=== PATIENT | male | born 1940 | race Caucasian/White ===

== ENCOUNTER → 2017-03-13 | Outpatient (CLI) | payer MEDICARE, OTHER ==
[2015-02-08 13:10] VITALS: BP 99/44
[~2017-03-13] MED LIST: ASPI81TA2 PO; ATOR20TA58 PO; CALC600T4 PO; CLOP75TA PO; FENO200C PO; FURO20TA3 PO; GLIM4TAB2 PO; LISI-338 PO; MAGN500C PO; METO25TA4 PO; METO25TA9 PO; MULT-245 PO; NIAC10002 PO; OMEG1CAP16 PO; REGADENOSON 0.4 MG/5 ML DISP.SYRIN. IV ONE; TAMS0.4C2 PO
--- NOTE | 2017-03-13 13:45 | RAD ---
APPROVED REPORT Test Type: Pharmacological Stress Nurse/Tech: Brian Best RN Test Indications: chest tightness Cardiac History: see ehr Medications: see ehr Medical History: see ehr Resting ECG: SB Resting Heart Rate: 49 bpm Resting Blood Pressure: 113/57mmHg Pretest Chest Pain: None Nurse/Tech Notes Lungs CTA, S1, S2 Consent: The procedure was explained to the patient in lay terms. Informed consent was witnessed. Albin eout was entered into [employer]. History and Stress Test performed by Jose C JorgensenNKd Pharm. Details Pharmacologic stress testing was performed using 0.4mg per 5ml of regadenoson given intravenously ove r 7-10 seconds. Stress Symptoms No chest pain or symptoms. POST EXERCISE Reason for Termination: Infusion complete Max HR: 71 bpm Max Blood Pressure: 107/50mmHg Blood Pressure response to exercise: Normal blood pressure response during stress. Chest Pain: No. Arrhythmia: No. ST Change: No. INTERPRETATION Stress EKG Conclusion: The resting EKG showed a sinus rhythm with a left anterior fascicular block. The stress EKGs showed no significant change from baseline. No EKG evidence of stress-induced ischemia. Imaging Protocol IMAGE PROTOCOL: Rest Tc-99m/stress Tc-99m 1 day Rest: Stress: Viability: Radiopharm.Tc99m JsuzuftpfQz21n Sestamibi Wpbw63mDf 32mCi Duration 15min. 10min. Img Date 03/13/2017 03/13/2017 Inj-Img Hwqx19jup. 60min. Rest Admin Site:IV - Right AntecubitalAdministrator:RT Jose Miguel (R)(N) Stress Admin Site: IV - Right AntecubitalAdministrator: CARLOS Sung STRESS DATA End Diast. Vol.81.0mlAv. Heart Rate60.0bpm End Syst. Vol.26.0mlCO Index BSA0.0L/min Myocardial Oags773.0gEject. Brwrqqel74.0% Stress Rates Pk. Fill Rate2.35EDV/secLVtime Pk. Fill 255.82msec Pk. Empty Rate3.58ESV/secLVtime Pk. Pbwkt006.73msec 1/3 Pk. Fill0.92EDV/sec Stress Scores Regional WT0.00Summed WT0.00 Regional WM0.00Summed WM0.00 LV Perfusion The stress scans showed no significant defects. The rest scans showed no significant defects. Nuclear imaging shows no reversible ischemia or infarct. Wall Motion Normal left ventricular systolic function with an ejection fraction of 68%. LV Perf. Quant 17 Seg. SSS5.00 17 Seg. SRS2.00 17 Seg. SDS3.00 Stress Defect Extent (% LAD)0.00Rest Defect Extent (% LAD)0.00Rev. Defect Extent (% LAD)0.00 Stress Defect Extent (% LCX) 50.00Rest Defect Extent (% LCX)16.30Rev. Defect Extent (% LCX)10.00 Stress Defect Extent (% RCA)0.00Rest Defect Extent (% RCA)0.00Rev. Defect Extent (% RCA)0.00 Stress Defect Extent (% JAILENE)9.10Rest Defect Extent (% JAILENE)2.80Rev. Defect Extent (% JAILENE)1.70 Conclusion 1. No EKG evidence of stress-induced ischemia. 2. Nuclear imaging shows no reversible ischemia or infarct. 3. Normal left ventricular systolic function with an ejection fraction of 68%. 4. Low risk Lexiscan nuclear stress test.
== END | disposition home or self-care (01) ==
LOC: NM 08:50
PROVIDERS: ATTEND Internal Medicine Cardiovascular Disease
DX: R07.89 Other chest pain (principal)
CPT/HCPCS: 78452; 93017; 96374; 96375; 96376; A9500; J2785

== ENCOUNTER 2018-03-07 09:00 | Emergency (ER) | payer MEDICARE | END 2018-03-07 12:20 | disposition home or self-care (01) | LOC: ER 09:00 | DX: K59.00 Constipation, unspecified (principal); K64.9 Unspecified hemorrhoids; E11.9 Type 2 diabetes mellitus without complications; E78.00 Pure hypercholesterolemia, unspecified; I10 Essential (primary) hypertension; Z87.442 Personal history of urinary calculi; Z88.5 Allergy status to narcotic agent; Z87.891 Personal history of nicotine dependence | CPT/HCPCS: 74018; 99283 ==

== ENCOUNTER → 2018-07-14 | Outpatient (CLI) | payer MEDICARE ==
[2018-03-07 12:00] VITALS: BP 121/77
[~2018-07-14] MED LIST changes: +ASPI-630 PO; -ASPI81TA2 PO; -MAGN500C PO; +MAGN500C10 PO; +METO-239 PO; -METO25TA9 PO; -OMEG1CAP16 PO; +OMEG1CAP27 PO; -REGADENOSON 0.4 MG/5 ML DISP.SYRIN. IV ONE
--- NOTE | 2018-07-14 12:46 | KCIC ---
CT ABDOMEN PELVIS WO CONTRAST Indication: History of renal cell cancer. Elevated LFTs. Left nephrectomy. Cholecystectomy. Exposure: One or more of the following individualized dose reduction techniques were utilized for this examination: 1. Automated exposure control 2. Adjustment of the mA and/or kV according to patient size 3. Use of iterative reconstruction technique. Comparison: None are available. Contrast: No intravenous contrast given. No oral contrast per request. Evaluation of solid viscera, bowel and vasculature is compromised by the noncontrast technique. Lower thorax: Coronary artery calcifications. Emphysematous changes in the lung bases. Liver: Unremarkable Spleen: Unremarkable Pancreas: Unremarkable Adrenals: No evidence of mass. Kidneys: Left kidney absent. Right kidney measures 10.5 cm longitudinal. Nonobstructive 5 mm calculus lower pole of the right kidney. No hydronephrosis. No ureteric calculus. Gallbladder: Surgically absent Aorta: Calcified and tortuous. No evidence of aneurysm. Lymph nodes: No significant enlargement GI tract: Mild diverticulosis. No evidence of acute colitis. No evidence of bowel obstruction. Appendix is not clearly visualized. Reproductive organs: Prostate gland is enlarged, about 5.5 cm diameter. Urinary bladder: Mildly distended with borderline wall thickening, may be due to chronic outlet obstruction. The inferior bladder is indented statement. Peritoneum: Minimal stranding within the mesenteric fat. Numerous tiny punctate foci of calcification within the peritoneum, most predominantly along the posterior right liver. Abdominal wall: Unremarkable Spine: Severe degenerative spondylosis with stenosis. Bones: Degenerative changes at both hips. IMPRESSION: 1. Nonobstructive calculus at the lower pole the right kidney. 2. Status post left nephrectomy. 3. Prostatomegaly. 4. Mild urinary bladder wall thickening, could indicate chronic outlet obstruction. 5. Minimal stranding within the mesenteric fat suggesting mild nonspecific inflammation or edema. 6. Numerous punctate foci of calcification within the peritoneum, particularly on the right. Likely result of old chronic process. 7.Severe thoracolumbar spondylosis and stenosis. Electronically signed by: Tate Santos MD (07/14/2018 12:42 PM) [facility]
== END | disposition home or self-care (01) ==
LOC: KCIC CT 10:15
PROVIDERS: ATTEND Family Medicine
DX: N20.0 Calculus of kidney (principal); M47.895 Other spondylosis, thoracolumbar region; M48.05 Spinal stenosis, thoracolumbar region; K57.90 Diverticulosis of intestine, part unspecified, without perforation or abscess without bleeding; I25.10 Atherosclerotic heart disease of native coronary artery without angina pectoris; I12.9 Hypertensive chronic kidney disease with stage 1 through stage 4 chronic kidney disease, or unspecified chronic kidney disease; E11.22 Type 2 diabetes mellitus with diabetic chronic kidney disease; N18.3 Chronic kidney disease, stage 3 (moderate); I25.2 Old myocardial infarction; Z98.890 Other specified postprocedural states; Z85.53 Personal history of malignant neoplasm of renal pelvis; Z82.49 Family history of ischemic heart disease and other diseases of the circulatory system
CPT/HCPCS: 74176

== ENCOUNTER → 2019-04-24 | Outpatient (CLI) | payer MEDICARE ==
[2018-03-07 12:00] VITALS: BP 121/77
--- NOTE | 2019-04-24 14:19 | KCIC ---
KNEE RIGHT 3V 04/24/2019 12:00 AM INDICATION: Right knee pain. Medial knee pain with intermittent swelling. COMPARISON: None available. TECHNIQUE: 4 views of the right knee are provided. FINDINGS: There is no acute fracture or dislocation. Bone mineralization is within normal limits. There is focal 2 mm depression involving the left medial tibial plateau involving a 7 mm segment which may represent an osteochondral defect. There is mild medial femorotibial joint space narrowing with subcortical sclerosis. There is mild patellofemoral joint space narrowing. There is a small knee joint effusion. Patellar enthesopathy is identified. IMPRESSION: No acute fracture or dislocation. There is an 7 x 2 mm osteochondral defect involving the medial tibial plateau which may be chronic. Small knee joint effusion. Mild medial femorotibial osteoarthrosis. Electronically signed by: Denise Dong MD (04/24/2019 2:16 PM) [facility]
== END | disposition home or self-care (01) ==
LOC: KCIC 12:22
PROVIDERS: ATTEND Family Medicine
DX: M17.11 Unilateral primary osteoarthritis, right knee (principal); M25.461 Effusion, right knee; M21.861 Other specified acquired deformities of right lower leg
CPT/HCPCS: 73562

== ENCOUNTER 2019-06-29 12:34 | Emergency (ER) | payer MEDICARE ==
[~2019-06-29] VITALS: Ht 172.7 cm; Wt 80.7 kg
--- NOTE | 2019-06-29 13:19 | PHYS DOC ---
Past Medical History Past Medical History: Diabetes-Type II, High Cholesterol, Hypertension, Kidney Stone Past Surgical History: Cholecystectomy, Other Additional Past Surgical Histo: left kidney removed, Side of R)great toe nail removed r\t ingrown. Alcohol Use: Rarely Drug Use: None Adult General Chief Complaint Chief Complaint: MECHANICAL FALL HPI HPI Patient is a 79 year old 79-year-old male patient with history of diabetes type 2, hypertension, high cholesterol, who presents to the ED to be evaluated after falling 3 days ago. 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 Denies any loss of consciousness. He states he had minimal pain when he fell but has noted increased pain over weekend currently rated as mild pain to the right shoulder, nose, and left knee. He states most of the pain is worse on the left knee on ambulation as well as right shoulder on range of motion. He states is on a blood thinner to prevent blood clots. He does not remember the name of the blood thinner. He reports he hit his nose on the ground when he fell. Review of Systems Review of Systems Constitutional: Denies fever or chills [] Eyes: Denies change in visual acuity, redness, or eye pain [] HENT: Reports nose pain and abrasion. Denies nasal congestion or sore throat [] Respiratory: Denies cough or shortness of breath [] Cardiovascular: No additional information not addressed in HPI [] GI: Denies abdominal pain, nausea, vomiting, bloody stools or diarrhea [] : Denies dysuria or hematuria [] Musculoskeletal: Reports left knee pain, right shoulder pain Integument: Denies rash or skin lesions [] Neurologic: Denies headache, focal weakness or sensory changes [] All other systems were reviewed and found to be within normal limits, except as documented in this note. Allergies Allergies Allergies Coded Allergies Type Severity Reaction Last Updated Verified oxycodone Allergy Severe AnaphylaXIS 02/08/15 Yes Physical Exam Physical Exam Constitutional: Well developed, well nourished, no acute distress, non-toxic appearance. [] HENT: Bruising noted on the anterior aspect of the nose. No deformity. Eyes: PERRLA, EOMI, conjunctiva normal, no discharge. [] Neck: Normal range of motion, no tenderness, supple, no stridor. [] Cardiovascular:Heart rate regular rhythm, no murmur [] Lungs & Thorax: Bilateral breath sounds clear to auscultation [] Abdomen: Bowel sounds normal, soft, no tenderness, no masses, no pulsatile masses. [] Skin: Warm, dry, no erythema, no rash. [] Back: No tenderness, no CVA tenderness. [] Extremities: Right shoulder with no obvious deformity, full range of motion to the right shoulder and right upper extremity. Adequate radial medial and ulnar sensation to the right upper extremity. +2 right radial pulse. Cap refill less than 2 seconds the right fingers. Left knee with no obvious deformity. Soft tissue swelling noted on the anterior aspect of the left knee including bruising here and tenderness on palpation of the left anterior knee. Slightly Limited range of motion to the left knee due to pain. +2 bilateral pedal pulses. Neurologic: Alert and oriented X 3, normal motor function, normal sensory function, no focal deficits noted. [] Psychologic: Affect normal, judgement normal, mood normal. [] Current Patient Data Vital Signs Vital Signs Date Time Temp Pulse Resp B/P (MAP) Pulse Ox O2 Delivery O2 Flow Rate FiO2 06/29/19 12:59 97.7 60 14 153/67 (95) 98 Room Air 97.7 EKG EKG [] Radiology/Procedures Radiology/Procedures []PROCEDURE: CT HEAD AND CERVICAL SPINE WO CT MAXILLOFACIAL WO CONTRAST, CT HEAD AND CERVICAL SPINE WO Clinical indications: Fall last Saturday. Head and facial injury. On blood thinners. NONCONTRAST HEAD CT COMPARISON: None available. Technique: Noncontrast axial cross sectional scanning of the head was performed. PQRS compliance Statement One or more of the following individualized dose reduction techniques were utilized for this study: 1. Automated exposure control 2. Adjustment of the mA and/or kV according to patient size 3. Use of iterative reconstruction technique Findings: No acute intracranial hemorrhage or midline shift or mass-effect or hydrocephalus or extra-axial fluid collection is seen. No focal hypodense area or sulci effacement is seen to indicate an acute infarct or edema radiographically. No skull fracture or pneumocephalus is seen. No opacification of the mastoid sinuses or the middle ear cavities or the paranasal sinuses is seen. Impression: No acute intracranial abnormality is seen. CT STUDY OF THE MAXILLOFACIAL BONES WITHOUT CONTRAST TECHNIQUE: Noncontrast helical CT scanning of the maxillofacial bones was performed. Multiplanar 2-D reconstructions were generated. FINDINGS: The mandible is intact and the temporomandibular joints are normally aligned. The patient is edentulous. The maxilla and nasal spine and pterygoid plates are intact. Nasal bones are intact. There is nasal septal deviation with the convexity pointed towards the right side. The orbit and orbital floor and zygoma and zygomatic arch is intact on both sides. IMPRESSION: No acute fracture. CT STUDY OF THE CERVICAL SPINE WITHOUT CONTRAST TECHNIQUE: Noncontrast helical CT scanning of the cervical spine was performed. Multiplanar 2-D reconstructions were generated. FINDINGS: No acute fracture or discitis or lytic process is evident. No anterolisthesis is evident. Degenerative facet arthropathy is evident. No perching of facet joints is seen. There is degenerative disc space narrowing and endplate spurring at C3-4 and C4-5 and C5-6 and C6-7 and C7-T1. IMPRESSION: No acute fracture. Degenerative cervical spondylosis. Electronically signed by: Consuelo Stahl MD (06/29/2019 2:29 PM) [facility]ALKoemeiN[facility] DICTATED and SIGNED BY: CONSUELO STAHL MD DATE: 06/29/19 [id number] PROCEDURE: SHOULDER 2+V RIGHT Indications: Fall and pain. Three-view right shoulder study: No acute fracture or dislocation or lytic process is seen. Mild primary degenerative osteoarthritis of the AC joint and glenohumeral joint is seen. Chronic erosion of the lateral head is seen secondary to chronic acromial humeral space impingement which may result in rotator cuff disease. IMPRESSION: No acute fracture. 4 view left knee study: No acute fracture or dislocation or lytic process is seen. Mild left knee joint effusion. There is prepatellar soft tissue swelling which may be due to bursitis. Prominent exostosis of the anterior tibial tubercle is seen at the attachment of the patellar tendon. The patella is normally aligned. There is minimal degenerative spurring of the patellofemoral joint compartment. IMPRESSION: Prepatellar bursitis. No acute fracture. Electronically signed by: Consuelo Stahl MD (06/29/2019 1:56 PM) [place] [id number] DICTATED and SIGNED BY: CONSUELO STAHL MD DATE: 06/29/19 6233 Course & Med Decision Making Course & Med Decision Making Pertinent Labs and Imaging studies reviewed. (See chart for details) This is a 79-year-old male patient who presents to the emergency room with complaints of right shoulder, left knee and nose pain after falling over the weekend. Pain has increased over time. CT of the head, maxillary facial and cervical spine are negative for any acute findings. Left knee x-ray was noted for bursitis otherwise no acute findings. Right shoulder x-rays were negative f or any acute findings. Scooby bandage applied to the left knee by the ED RN, neurovascular exam is intact. Ice elevation encouraged. Tylenol for pain. Follow-up with PCP in 1-2 weeks. Tetanus up-to-date. Dragon Disclaimer Dragon Disclaimer This electronic medical record was generated, in whole or in part, using a voice recognition dictation system. Departure Departure Impression: Primary Impression: Prepatellar bursitis, left knee Additional Impressions: Contusion of right shoulder Facial contusion Fall from standing Disposition: 01 HOME, SELF-CARE Condition: STABLE Referrals: GREG BLANCO MD (PCP) follow up in one week Patient Instructions: Contusion, [id number] Additional Instructions: You were devaluated in the emergency room after falling, your CAT scan of the he ad and face, cervical spine are negative for any acute findings. Your right shoulder x-rays are negative for any acute findings. Left knee x-rays were noted for bursitis. Try to keep the left knee wrapped in an Scooby bandage, try to elevate the affected extremities. Take Tylenol as needed for pain. Follow-up with your own doctor in the next 1 week. Problem Qualifiers Additional Impressions: Contusion of right shoulder Encounter type: initial encounter Qualified Codes: S40.011A - Contusion of right shoulder, initial encounter Facial contusion Encounter type: initial encounter Qualified Codes: S00.83XA - Contusion of other part of head, initial encounter Fall from standing Encounter type: initial encounter Qualified Codes: W19.XXXA - Unspecified fall, initial encounter ALEX PIZANO APRN Jun 29, 2019 13:19
--- NOTE | 2019-06-29 13:59 | RAD ---
Indications: Fall and pain. Three-view right shoulder study: No acute fracture or dislocation or lytic process is seen. Mild primary degenerative osteoarthritis of the AC joint and glenohumeral joint is seen. Chronic erosion of the lateral head is seen secondary to chronic acromial humeral space impingement which may result in rotator cuff disease. IMPRESSION: No acute fracture. 4 view left knee study: No acute fracture or dislocation or lytic process is seen. Mild left knee joint effusion. There is prepatellar soft tissue swelling which may be due to bursitis. Prominent exostosis of the anterior tibial tubercle is seen at the attachment of the patellar tendon. The patella is normally aligned. There is minimal degenerative spurring of the patellofemoral joint compartment. IMPRESSION: Prepatellar bursitis. No acute fracture. Electronically signed by: Ric Stahl MD (06/29/2019 1:56 PM) [facility]
--- NOTE | 2019-06-29 14:32 | RAD ---
CT MAXILLOFACIAL WO CONTRAST, CT HEAD AND CERVICAL SPINE WO Clinical indications: Fall last Saturday. Head and facial injury. On blood thinners. NONCONTRAST HEAD CT COMPARISON: None available. Technique: Noncontrast axial cross sectional scanning of the head was performed. RS compliance Statement One or more of the following individualized dose reduction techniques were utilized for this study: 1. Automated exposure control 2. Adjustment of the mA and/or kV according to patient size 3. Use of iterative reconstruction technique Findings: No acute intracranial hemorrhage or midline shift or mass-effect or hydrocephalus or extra-axial fluid collection is seen. No focal hypodense area or sulci effacement is seen to indicate an acute infarct or edema radiographically. No skull fracture or pneumocephalus is seen. No opacification of the mastoid sinuses or the middle ear cavities or the paranasal sinuses is seen. Impression: No acute intracranial abnormality is seen. CT STUDY OF THE MAXILLOFACIAL BONES WITHOUT CONTRAST TECHNIQUE: Noncontrast helical CT scanning of the maxillofacial bones was performed. Multiplanar 2-D reconstructions were generated. FINDINGS: The mandible is intact and the temporomandibular joints are normally aligned. The patient is edentulous. The maxilla and nasal spine and pterygoid plates are intact. Nasal bones are intact. There is nasal septal deviation with the convexity pointed towards the right side. The orbit and orbital floor and zygoma and zygomatic arch is intact on both sides. IMPRESSION: No acute fracture. CT STUDY OF THE CERVICAL SPINE WITHOUT CONTRAST TECHNIQUE: Noncontrast helical CT scanning of the cervical spine was performed. Multiplanar 2-D reconstructions were generated. FINDINGS: No acute fracture or discitis or lytic process is evident. No anterolisthesis is evident. Degenerative facet arthropathy is evident. No perching of facet joints is seen. There is degenerative disc space narrowing and endplate spurring at C3-4 and C4-5 and C5-6 and C6-7 and C7-T1. IMPRESSION: No acute fracture. Degenerative cervical spondylosis. Electronically signed by: Ric Stahl MD (06/29/2019 2:29 PM) [place] [id number]
[2019-06-29 15:22] VITALS: BP 119/59
== END 2019-06-29 15:12 | disposition home or self-care (01) ==
LOC: ER 12:34
DX: S40.011A Contusion of right shoulder, initial encounter (principal); S00.83XA Contusion of other part of head, initial encounter; M70.42 Prepatellar bursitis, left knee; Y93.89 Activity, other specified; R51 Headache; E78.00 Pure hypercholesterolemia, unspecified; E11.9 Type 2 diabetes mellitus without complications; I10 Essential (primary) hypertension; Z90.49 Acquired absence of other specified parts of digestive tract; Z88.5 Allergy status to narcotic agent; W01.198A Fall on same level from slipping, tripping and stumbling with subsequent striking against other object, initial encounter; Y92.89 Other specified places as the place of occurrence of the external cause; Y99.8 Other external cause status
CPT/HCPCS: 70450; 70486; 72125; 73030; 73564; 99284

== ENCOUNTER → 2020-04-14 | Outpatient (CLI) | payer MEDICARE ==
[~2020-04-14] MED LIST changes: -GLIM4TAB2 PO; +GLIM4TAB8 PO
--- NOTE | 2020-04-14 12:24 | CARD ---
MR#: [id number] Date of Study: 04/14/2020 Ordering Physician: LESLIE RAGSDALE, Referring Physician: LESLIE RAGSDALE, Tech: Oralia Pathak [facility] APPROVED REPORT EXAM: Two-dimensional and M-mode echocardiogram with Doppler and color Doppler. Other Information Quality : Good INDICATION Cardiac Disease: CAD 2D DIMENSIONS RVDd2.8 (2.9-3.5cm)Left Atrium(2D)3.9 (1.6-4.0cm) IVSd1.2 (0.7-1.1cm)Aortic Root(2D)3.1 (2.0-3.7cm) LVDd4.8 (3.9-5.9cm)LVOT Diameter2.5 (1.8-2.4cm) PWd1.2 (0.7-1.1cm)LVDs3.3 (2.5-4.0cm) FS (%) 30.5 %SV61.6 ml LVEF(%)57.9 (>50%) Aortic Valve AoV Peak Krishna.136.8cm/sAoV VTI29.1cm AO Peak GR.7.5mmHgLVOT Peak Krishna.130.5cm/s AO Mean GR.4mmHgAVA (VMAX)4.75cm2 PATRICIA (VTI)5.30cm2 Mitral Valve MV E Ewcbifgq91.4cm/sMV DECEL [id number] MV A Gprhzkoj66.8cm/sE/A Ratio0.8 Tricuspid Valve TR P. Dznhmjol075bc/sRAP KAXXOPZB3rqCc TR Peak Gr.60qkUrVUBF73jnBp Pulmonary Vein S1 Kgervtqk33.4cm/sD2 Ddrjmufz51.4cm/s LEFT VENTRICLE The left ventricle is normal size. There is mild concentric left ventricular hypertrophy. The left ve ntricular systolic function is normal and the ejection fraction is within normal range. The Ejection Fraction is 55-60%. There is normal LV segmental wall motion. Transmitral Doppler flow pattern is Gra de I-abnormal relaxation pattern. RIGHT VENTRICLE The right ventricle is normal size. The right ventricular systolic function is normal. ATRIA The left atrium size is normal. The right atrium size is normal. The interatrial septum is intact wit h no evidence for an atrial septal defect or patent foramen ovale as noted on 2-D or Doppler imaging. AORTIC VALVE The aortic valve is calcified but opens well. Doppler and Color Flow revealed no significant aortic r egurgitation. There is no significant aortic valvular stenosis. MITRAL VALVE The mitral valve is thickened but opens well. Mitral annular calcification is mild. There is no evide nce of mitral valve prolapse. There is no mitral valve stenosis. Doppler and Color-flow revealed trac e to mild mitral regurgitation. TRICUSPID VALVE The tricuspid valve is normal in structure and function. Doppler and Color Flow revealed trace tricus pid valve regurgitation. The PA pressure was estimated at 26 mmHg. There is no tricuspid valve stenos is. PULMONIC VALVE The pulmonic valve is not well visualized. Doppler and Color Flow revealed no pulmonic valvular regur gitation. There is no pulmonic valvular stenosis. GREAT VESSELS The aortic root is normal in size. The ascending aorta is normal in size. The IVC is normal in size a nd collapses >50% with inspiration. PERICARDIAL EFFUSION There is no evidence of significant pericardial effusion. Critical Notification Critical Value: No <Conclusion> The left ventricle is normal size. The left ventricular systolic function is normal and the ejection fraction is within normal range. The Ejection Fraction is 55-60%. There is mild concentric left ventricular hypertrophy. Doppler and Color Flow revealed no significant aortic regurgitation. There is no significant aortic valvular stenosis. Doppler and Color-flow revealed trace to mild mitral regurgitation. Doppler and Color Flow revealed trace tricuspid valve regurgitation. The PA pressure was estimated at 26 mmHg. Signed by : Solomon Cronin MD Electronically Approved : 04/14/2020 12:23:55
== END | disposition home or self-care (01) ==
LOC: ECHO 10:37
PROVIDERS: ATTEND Internal Medicine Cardiovascular Disease
DX: I34.0 Nonrheumatic mitral (valve) insufficiency (principal); I35.8 Other nonrheumatic aortic valve disorders; I25.10 Atherosclerotic heart disease of native coronary artery without angina pectoris
CPT/HCPCS: 93306